=== PATIENT | female | born 1975 | race Caucasian/White ===

== ENCOUNTER → 2018-05-14 | Outpatient (CLI) | payer BC | END | disposition home or self-care (01) | LOC: LABWHC1 11:46 | PROVIDERS: ATTEND Otolaryngology | DX: J30.89 Other allergic rhinitis (principal) | CPT/HCPCS: 36415 ==

== ENCOUNTER → 2020-06-02 | Outpatient (CLI) | payer BC ==
--- NOTE | 2020-06-02 10:42 | XR ---
EXAMINATION TYPE: XR shoulder complete LT DATE OF EXAM: 06/02/2020 COMPARISON: NONE HISTORY: Pain TECHNIQUE: Three views are submitted. FINDINGS: The osseous structures are intact. There is no acute fracture or dislocation. The AC joint is maint ained. Artifact noted overlying the lung alex. IMPRESSION: 1. No acute process.
--- NOTE | 2020-06-02 11:10 | XR ---
EXAMINATION TYPE: XR cervical spine comp DATE OF EXAM: 06/02/2020 COMPARISON: NONE HISTORY: Pain TECHNIQUE: Four views are submitted. FINDINGS: The odontoid is intact. There are no compression deformities. The prevertebral soft tissue structur es are within normal limits. Severe degenerative disc disease with posterior spondylosis and anterio r spurring C5-C6. Foraminal encroachment C5-6 and C6-C7 bilaterally. Greater at C6-C7. IMPRESSION: 1. Severe degenerative disc disease C5-C6.
== END | disposition home or self-care (01) ==
LOC: RADXRYALE 10:13
PROVIDERS: ATTEND Internal Medicine
DX: M50.322 Other cervical disc degeneration at C5-C6 level (principal); M25.512 Pain in left shoulder
CPT/HCPCS: 72050

== ENCOUNTER → 2020-08-11 | Outpatient (CLI) | payer BC ==
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
== END | disposition home or self-care (01) ==
LOC: RADMRIMAIN 11:04
PROVIDERS: ATTEND Orthopaedic Surgery
DX: M48.02 Spinal stenosis, cervical region (principal); M50.30 Other cervical disc degeneration, unspecified cervical region
CPT/HCPCS: 72141

== ENCOUNTER → 2020-08-16 | Outpatient (CLI) | payer BC ==
--- NOTE | 2020-08-17 04:29 | MR ---
EXAMINATION TYPE: MR shoulder LT wo con DATE OF EXAM: 08/16/2020 COMPARISON: None HISTORY: LT shoulder pain Multiplanar multiecho imaging of the left shoulder was performed without contrast. The biceps tendon is intact. Subscapularis tendon is intact. Glenoid ashwin appear intact. There is sm all shoulder joint effusion. There is full-thickness defect in the supraspinatus tendon 1 cm from the attachment on the greater tu berosity of the humerus. There is some thickening and increased signal in the tendon. There is no ret raction. There is small amount of fluid in the subdeltoid bursa. The AC joint is intact without significant subacromial impingement. There is minor spur formation. Th ere is no evidence of a fracture. The humeral head is intact. IMPRESSION: Full-thickness tear of the supraspinatus tendon. No retraction. Mild shoulder joint effusion and subdeltoid effusion consistent with synovitis. No fracture.
== END | disposition home or self-care (01) ==
LOC: RADMRIMAIN 16:23
PROVIDERS: ATTEND Orthopaedic Surgery
DX: M75.112 Incomplete rotator cuff tear or rupture of left shoulder, not specified as traumatic (principal); M25.412 Effusion, left shoulder

== ENCOUNTER → 2020-11-08 | Outpatient (CLI) | payer BC ==
--- NOTE | 2020-11-09 09:11 | CT ---
EXAMINATION TYPE: CT cervical spine wo con DATE OF EXAM: 11/08/2020 COMPARISON: None HISTORY: Cervicalgia CT DLP: 347.20 mGycm CONTRAST: None CT of the cervical spine is performed in the axial plane at 2 mm thick sections. Reconstructed image s in the coronal, and sagittal plane are reviewed on the computer. No acute fractures are evident. There is slight kyphosis is present centered at C5. Degenerative disc changes noted C5-6. Mild disc bulging is mild anterior thecal sac compression. Some spinal canal narrowing may be present. Minimal anterior vertebral body spurring is present C5. Prevertebral space is normal. Posterior spinal lamel lar line is intact. Remaining disc heights are preserved. Vertebral body heights are preserved. No spinal canal stenosis is evident Uncovertebral joint hypertrophy is present C6-7 with mild bilateral foraminal narrowing IMPRESSIONS: 1. Mild degenerative disc change C5-6 with disc bulging contributing to spinal canal narrowing. 2. Mild foraminal narrowing C6-7 due to uncovertebral joint hypertrophy.
== END | disposition home or self-care (01) ==
LOC: RADCTMAIN 13:06
PROVIDERS: ATTEND Orthopaedic Surgery
DX: M48.02 Spinal stenosis, cervical region (principal); M50.322 Other cervical disc degeneration at C5-C6 level
CPT/HCPCS: 72125

== ENCOUNTER → 2020-11-08 | Outpatient (CLI) | payer BC | END | disposition home or self-care (01) | LOC: LABPAT 11:09 | PROVIDERS: ATTEND Orthopaedic Surgery | DX: Z01.812 Encounter for preprocedural laboratory examination (principal); M50.222 Other cervical disc displacement at C5-C6 level | CPT/HCPCS: 87070 ==

== ENCOUNTER 2020-11-16 11:29 | Day surgery (SDC) | payer BC ==
[2020-11-12 14:19] VITALS: BMI 24.4
--- NOTE | 2020-11-15 10:48 | P.HPOR ---
History of Present Illness H&P Date: 11/08/20 Chief Complaint: Arm pain, finger numbness, neck pain HPI: Ms Alec presents for follow up of her C spine with her to discuss surgery. We talked earlier about doing injections of her spine, however she states that her symptoms have become worse and she would like to pursue surgical options as she has tried OCT, RX medications, Home therapy, PT as well as cremes, CBD and multiple forms of conservative care for the past year with no improvement. She and her both think that surgery is the next best option for her at this time. HISTORY: This 45 year old female presents today for a follow up on her cervical pain and MRI results. She completed physical therapy on 08/31/2020 with some improvements. She notes pain in the center of her neck that radiates into the left shoulder and left upper extremity. Patient also notes left index finger numbness that increases with applying pressure. Patient has night time symptoms. Patient has burning sensation that increases with activity. She does not take pain medications. She uses CBD oil. Review of Systems 14 points review of systems completed and as stated in HPI, all other systems reviewed are negative. 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, herniated disk, degenerative disks-has some numbnes in fingers on left hand), benign cysts on thyroid, History of Any Multi-Drug Resistant Organisms: None Reported Past Surgical History: Appendectomy, Hysterectomy Additional Past Surgical History / Comment(s): D&C, EGD, thyroid fine needle aspiration Past Anesthesia/Blood Transfusion Reactions: No Reported Reaction Smoking Status: Never smoker - Past Family History Father Family Medical History: Cancer Additional Family Medical History / Comment(s): melanoma Medications and Allergies Home Medications Medication Instructions Recorded Confirmed Type Acetaminophen [Tylenol Extra 1,000 mg PO DIRECTED PRN 11/12/20 11/12/20 History Strength] Multivitamins, Thera [Multivitamin 1 tab PO DAILY 11/12/20 11/12/20 History (formulary)] Allergies Allergy/AdvReac Type Severity Reaction Status Date / Time amoxicillin Allergy Itching Verified 11/12/20 14:11 erythromycin base Allergy Itching Verified 11/12/20 14:11 minocycline [From Minocin] Allergy Itching Verified 11/12/20 14:11 morphine Allergy Rash/Hives Verified 11/12/20 14:11 Penicillins Allergy Itching Verified 11/12/20 14:11 Sulfa (Sulfonamide Allergy Itching Verified 11/12/20 14:11 Antibiotics) sulfamethoxazole Allergy Itching Verified 11/12/20 14:11 [From Bactrim] trimethoprim [From Bactrim] Allergy Itching Verified 11/12/20 14:11 Physical Examination Osteopathic Statement: *. No significant issues noted on an osteopathic structural exam other than those noted in the History and Physical/Consult. PHYSICAL EXAMINATION: Gen. patient alert and oriented 3 appears well-nourished well-hydrated is no acute distress. She does not appear septic. Heart is regular rate and rhythm no murmurs. Lungs are clear to auscultation bilaterally. Palpation: Please see Pain drawing on Intake sheet for further detail. Midline spinal tenderness: yes cervical E6 Paralumbar tenderness: No E6 Parathoracic tenderness: No E6 Buttocks tenderness: No E6 POSTURAL and MUSCULO-SKELETAL EVALUATION: Coronal Balance: Neutral Sagittal Balance: Neutral Shoulder Profile: [Level] Pelvic Girdle: [Level] Neck ROM: some restrictions Lumbar ROM: Unrestricted Shoulder ROM: Symmetric in abduction, ER/IR Hip ROM: Symmetric in abduction, adduction, ER/IR Knee ROM: Symmetric and intact in Flexion / extension VASCULAR STATUS : LEFT RIGHT Wrist Pulses intact intact Pedal Pulses (Dors. pedis & post.tibialis) intact intact Color normal normal Edema Absent Absent NEUROLOGIC EXAMINATION: Mental Status: Awake and alert, fully oriented, with normal attention, concentration and memory, and fluent, appropriate speech. Cranial Nerves: I: Olfactory not tested. II: Visual acuity normal, no visual field deficit noted with confrontation. III,IV: Normal pupillary reflexes & intact extraocular movements without nystagmus. V,: Intact symmetrical facial sensation. VII: Intact symmetrical facial motor movement VIII: Hearing intact. IX,X: Intact gag, swallow, & normal voice. XI: Sternocleidomastoid, trapezius function intact. XII: Tongue midline with normal movements. L'hermitte's Sign: Negative / absent Spurling'Sign: Absent bilaterally. Cubital percussion test: Absent bilaterally. Saqib-Tinel sign - Carpal region: Absent bilaterally. Straight Leg Raising: Absent bilaterally. Crossed straight leg raise: negative O8 MOTOR EXAM (0-5/5, N/T) STRENGTH RIGHT LEFT Shoulder Abd (not part of the YOLANAD score) 5 +4 Elbow Flexors 5 5 Elbow Extensor 5 +4 triceps 5 4+ Finger Abductor 5 5 Internet Sales Representative 5 4 Hip Flexor (Not part of YOLANDA Motor score) 5 5 Knee Flexor 5 5 Knee Extensor 5 5 Ankle dorsiflexor 5 5 Ankle plantarflexion 5 5 Extensor hallucis 5 5 REFLEXES(0-4/2, NT) RIGHT LEFT Upper Extremities +3 +3 Lower Extremities +3 +3 Pathological Reflexes RIGHT LEFT Jeffers's Absent Absent Clonus Absent Absent Sensory system (0-4, N/T) Test type RU GARRY RL LL Joint-Position 2 2 2 2 Vibration 2 2 2 2 Pain & LT sense 2 2 2 2 Dermatomal Deficit: none none none none Gait and Functional Evaluation Romberg's test: Intact bilaterally Toe heel walk / heel-toe walk intact while maintaining satisfactory balance? yes Squatting/straightening w/o assistance to a min of 60 degree knee flexion? yes Single leg stance: intact Trendelenburg sign negative bilaterally Hand and finger dexterity intact bilaterally? yes Disdiadochokinesis examination negative bilaterally? yes Results multiple views of the cervical spine obtained and reviewed this demonstrates a stable occipital cervical and C1 2 joints through flexion-extension. Subaxial cervical spine is stable through flexion-extension. There is spondylosis noted at C5-C6 compared to other levels. There is mild retrolisthesis at this level as well. It does remain stable through flexion-extension however. No fractures dislocations or other lesions are noted. Her facet joints appear without any arthritic changes. MRI of of the cervical spine from 08/11/2020 reveal: C5-6 and C6-7 stenosis with foraminal stenosis moderate in nature due to HNP. C5-6 appears more acute while C6-7 appears more chronic. She injured it back in December so this fits. She states continued radicular symptoms that correspond to these segments. No fracture or dislocation is noted. Assessment and Plan Assessment: IMPRESSION AND PLAN: It was my pleasure to have seen and examined Jessica Michael. I reviewed the patient's clinical syndrome, physical findings, and imaging studies during the appointment today. It is my impression that the patient has a diagnosis of . I outlined the natural course history without intervention and various interventional options. 1. C5-C6 herniated disc/stenosis 2. C6-C7 herniated disc/ stenosis 3. left upper extremity numbness ( left middle finger) 4. LUE weakness Plan: Based on my findings I suggest the following course of action: 1.Schedule for C5-C6 and C6-7 Total disc replacement 2. 1 week pre op appt 3. PCP for surgical clearance 4. Cont consevative measures as well as symptomatic treatment at home 5. Cont with supplementation Vit D, Ca and Vit C. In our visit today Ms. Michael and I have had a chance to go over my understanding of the patient's current condition, the natural course history wit hout intervention and various interventional options. Questions were invited and answered, and the patient wishes to proceed as outlined above. Surgical Procedure Risk Review Jessica Michael is a 45 year old female presenting for evaluation of onset of LUE weakness, pain LIF numbness, hand numbness, arm pain. It was my pleasure to have seen and examined Ms. Michael. In our visit today we have had a chance to go over subjective complaints, physical examination findings and treatments, including the natural course history without intervention and various interventional options. The imaging demonstrates C5-6 and C6-7 stenosis due to disc herniation and spondylosis anterior . On physical exam, Ms. Michael demonstrates Weakenss in her LUE in tricep extension as well as some bicep and wrist extension, numbness in C6 distribution . I explained to the patient that as her condition progresses it could cause Continued or worsening symptoms . At this time, based on the patients imaging and physical exam, I recommend surgery in the form or a: C5-6 and C6-7 Total disc replacement . I discussed the risk and benefits of this procedure at length with Ms. Michael. The patient and her spouse/partneragreed to consider pursuing the procedure mentioned above. Plan: 1. C5-6 and C6-7 total disc replacement 2. Follow up with PCP for surgical clearance 3. Review of surgical risks and benefits as well as an educational packet on the proposed surgical procedure. Risks: All surgical procedures come with inherent risks, including those related to positioning, anesthesia, intraoperative findings, and postoperative complications. It is important to understand that surgery does not come with any guarantee of a successful outcome as complications and adverse events are always possible. The patient was given a handout in office today discussing the surgical procedure and risks associated with the intervention, both of which were discussed with the patient. These risks include but are not limited to the following: ? Experiencing same, different or even worse symptoms in back, neck, arms, or legs compared to before surgery. ? Requiring further surgery or other forms of treatment presently or at some time in the future at same or other levels of the intended spine surgery. ? On an extreme but fortunately relatively rare basis severe complication such as blindness, stroke, heart attack, temporary and/or permanent nerve injury, paralysis, coma, or may occur, sometimes without known explanat ion. ? Surgical complications may include but are not limited to risk of infection, fluid accumulation in the surgical dissection site, including a seroma or hematoma, that requires additional surgery, wound drainage, bleeding, new numbness or weakness, vision changes/loss, spinal fluid leakage, non-healing and/or infected incision, headaches, difficulty or inability to swallow, hoarseness, hemopneumothorax, pneumothorax, impotence, retrograde ejaculation, vaginal dryness; injury to nerves, spinal cord, blood vessels, lymphatics or other vital organs (i.e., bowel injury, injury to the great vessels); heterotopic bone formation; complications related to the hardware such as screws, rods, cages including misplaced hardware, device failure, instrumentation at the wrong spine level, hardware fracture/breakage, or hardware loosening; vertebral failure of the spinal column above or below the newly placed hardware; retained surgical instrumentations or devices and the need for further surgery. ? Medical risks of the planned spine surgery include but are not limited to generalized Infections to the whole body or local areas outside of the surgical site (sepsis), heart attack, bleeding, anaphylaxis, meningitis, seizure, epilepsy, hearing loss, burn gill, laceration of the head or other areas of the body, bruising, hypersensitivity of the skin, bladder over distension; allergic reaction; shoulder injury related to positioning; fat, blood and air clots to other areas of the body like heart, lungs, brain; failure of internal organs such as lungs, kidneys, liver and excessive bleeding. If blood transfusions are necessary, note that transfusions may cause intolerance reactions such as anaphylaxis or other complex reactions. Despite best efforts, the results of spine surgery might not heal in terms of bone, soft tissues such as skin, fascia, ligaments, and joints. Additionally, in order to achieve best possible results, spine surgery may be carried out beyond the initially planned levels and involve decompression, fusion including insertion of hardware at levels other than the original intended area of surgical interest change some portions of the procedure in order to ensure the best possible outcomes. With spine surgery and spinal fusion, there are different off label uses of instrumentation (devices, implants and hardware) as well as biological substances (bone morphogenic proteins, demineralized bone matrix) as well as using extra bone from allograft sources (i.e. cadaver bone) or autograft (iliac crest bone, ribs, or the spine itself). The patient has been given information about these practices and their inherent risks and benefits. [facility] [facility] Physician Assistants are medically trained surgical providers who function in the outpatient, inpatient, and operating room setting under the direct supervision of the attending surgeon.They assist in the operating room with direct supervision of the attending surgeons. The patient has had a chance to review all the listed information, has been given print outs detailing this information, and has had all his/her questions answered to their satisfaction. It was my pleasure to have seen and examined Ms. Michael. In our visit today we have had a chance to go over my understanding of our patient's current condition, the natural course history without intervention and various interventional options. Questions were invited and answered, and the patient wishes to proceed as outlined above. I have seen and examined the patient for 25 minutes and we have spent more than 50% of the time in repeat and detailed counseling about the patient's condition, its natural course history with out and as much as can be predicted with surgery and re-review of various surgical treatment options. In conclusion,Ms. Michael and her spouse/partner requested we proceed with the above suggested surgery and are willing to accept risks and limitations of the suggested surgery as nature of the disease process and our best attempts at treatment for the condition. Thank you again for allowing us to be part of your patient's care. Please don't hesitate to contact me if you have any further questions. Signed and authenticated by: Abiel Brown [facility] [address] [address]
[~2020-11-16 11:29] MED LIST: DEXAMETHASONE SOD PHOSPHATE 4 MG/ML 1 ML VIAL IV ONE; HYDROmorphone 0.5 MG/0.5 ML SYRINGE IVP PRN; ONDANSETRON 4 MG/2 ML VIAL IVP ONE
[2020-11-16] MEDS ORDERED: ONDANSETRON 4 MG/2 ML VIAL ONE ×2 (12:20→13:57)
[2020-11-16] MEDS: LACTATED RINGERS 1,000 ML IV SCH ×2 (12:26→19:45)
[2020-11-16] MEDS ORDERED: SCOPOLAMINE 1.5MG/72HR PATCH TRANSDERM ONE (12:27)
[2020-11-16] MEDS ORDERED: TRANEXAMIC ACID 2,000 MG in SODIUM CHLORIDE 0.9% 100 ML IVPB ONE (13:18)
[2020-11-16] MEDS ORDERED: TRANEXAMIC ACID 1,000 MG in SODIUM CHLORIDE 0.9% 100 ML IVPB PRN ×2 (13:22→13:23)
[2020-11-16] MEDS ORDERED: LIDOCAINE 1% INJ 10MG/ML (20 ML MDV) ONE (13:57)
[2020-11-16] MEDS ORDERED: TRANEXAMIC ACID 1,000 MG/10 ML VIAL ONE (13:57)
[2020-11-16] MEDS ORDERED: MIDAZOLAM 2 MG/2 ML VIAL ONE (13:57)
[2020-11-16] MEDS ORDERED: diphenhydrAMINE 50 MG/ML 1 ML VIAL ONE (13:57)
[2020-11-16] MEDS ORDERED: DEXAMETHASONE SOD PHOSPHATE 10 MG/ML 1 ML VIAL ONE (13:57)
[2020-11-16] MEDS ORDERED: ePHEDrine SULFATE/0.9% NACL/PF 50 MG/5 ML SYRINGE IV ONE (13:57)
[2020-11-16] MEDS ORDERED: GLYCOPYRROLATE 0.2 MG/ML 2 ML VIAL ONE (13:57)
[2020-11-16] MEDS ORDERED: SUCCINYLCHOLINE CHLORIDE 100 MG/5 ML SYR IV ONE (13:57)
[2020-11-16] MEDS ORDERED: HYDROmorphone (PF) 1 MG/ML ONE (13:57)
[2020-11-16] MEDS ORDERED: SODIUM CHLORIDE 0.9% 100 ML BAG ONE (13:57)
[2020-11-16] MEDS ORDERED: PROPOFOL 10 MG/ML 20 ML VIAL IV ONE (13:57)
[2020-11-16] MEDS ORDERED: fentaNYL (PF) 50 MCG/ML 2 ML AMP ONE (13:57)
[2020-11-16] MEDS ORDERED: KETAMINE 10 MG/ML 20 ML VIAL ONE (13:57)
[2020-11-16] MEDS ORDERED: LIDOCAINE 2%-EPI 1:100,000 20 ML VIAL SQ ONE (14:00)
[2020-11-16] MEDS ORDERED: BUPIVACAINE (PF) 0.5% 30 ML VIAL SQ ONE (14:00)
[2020-11-16] MEDS ORDERED: ceFAZolin 1,000 MG in SODIUM CHLORIDE 0.9% 1,000 ML IRRIGATION ONE (14:29)
[2020-11-16] MEDS ORDERED: LACTATED RINGERS 1,000 ML IV ONE (16:30)
[2020-11-16] MEDS ORDERED: GELATIN SPONGE,ABSORB (LARGE) 1 EACH SPONGE TOPICAL ONE (16:54)
[2020-11-16] MEDS ORDERED: THROMBIN (BOVINE) 5,000 UNIT VIAL TOPICAL ONE (16:54)
[2020-11-16] MEDS ORDERED: VANCOMYCIN 1,000 MG VIAL MISCELLANE ONE (16:54)
[2020-11-16] MEDS ORDERED: ONDANSETRON 4 MG/2 ML VIAL IVP PRN (17:24)
[2020-11-16] MEDS ORDERED: HYDROmorphone 1 MG/ML 1 ML SYRINGE IVP PRN (17:24)
[2020-11-16] MEDS ORDERED: SENNOSIDES-DOCUSATE SODIUM 1 EACH TAB PO PRN (17:24)
--- NOTE | 2020-11-16 17:37 | P.PN ---
Progress Note - Text Progress Note Date: 11/16/20 Postop: . Patient seen and examined they are doing well. Their pain is under control at this time. They are moving all 4 extremities without any issues. Vital signs are stable.. They are currently recovering and will be transferred to the floor once deemed stable by the PACU team and anesthesiologist. No Other issues at this time they deny fever chills shortness of breath or chest pain. C collar in place, well fitting Medical management pending Continue with intravenous fluids, pain medication, muscle relaxers, home medication Liquid diet to start to advance as tolerated We will evaluate the patient in the morning when she will likely be discharged.
--- NOTE | 2020-11-16 18:38 | XR ---
Fluoroscopy INDICATION: Pain FINDINGS: Fluoroscopy time: Not recorded . Images obtained: 8. IMPRESSIONS: 1. Documentation of fluoroscopy.
[2020-11-16] MEDS: GABAPENTIN 300 MG CAP PO SCH ×2 (20:15→22:59)
[2020-11-16] MEDS ORDERED: CYCLOBENZAPRINE 10 MG TAB PO SCH (21:00)
[2020-11-16] MEDS: INDOMETHACIN 25 MG CAP PO SCH (21:40)
--- NOTE | 2020-11-17 08:17 | P.OP ---
Date of Procedure: 11/16/20 Preoperative Diagnosis: 1. C5-6 stenosis 2. C6-7 stenosis 3. C5-6 spondylosis 4. C6-7 spondylosis 5. LUE weakness 6. LUE radiculopathy Postoperative Diagnosis: 1. C5-6 stenosis 2. C6-7 stenosis 3. C5-6 spondylosis 4. C6-7 spondylosis 5. LUE weakness 6. LUE radiculopathy Procedure(s) Performed: 1. Anterior approach to the cervical spine, Right sided rothman jimenez 2. C5-6 total disc replacement 3. C6-7 total disc replacement 4. Use of intraoperative microscope 5. Use of intraoperative neuromonitoring Implants: Prodisc C cervical disc replacement C5-6: 5 mm Large deep C6-7: 5 mm XL deep Anesthesia: GETA Surgeon: Abiel Avila Internal Control Consultant #1: Berlin Noel (Was present for the entire case and necessary due to the complexity of the case) Estimated Blood Loss (ml): 50 IV fluids (ml): 1,200 Urine output (ml): 250 Pathology: none sent Condition: stable Disposition: PACU Indications for Procedure: This is a pleasant 45-year-old female for the past year has been having increasing symptoms in her upper extremities with pain and weakness as well as radiculopathy. The patient originally had an injury to her neck for which she was treated conservatively but now her symptoms have increased in return she went through another course of conservative treatment which has failed to alleviate her symptoms and she has elected for surgical fixation. On MRI she wa s found to have 2 levels of stenosis with spondylosis anteriorly at C5 6 C6 7 she is elected for total disc replacement at this time recent benefits of the procedure were discussed and are outlined in the risk review. Operative Findings: Severe anterior spondylosis C5 6 C6 7 severe stenosis C5 6 Description of Procedure: The patient was seen and examined in the preoperative area. All preoperative protocols were followed. Informed consent was obtained risks and benefits of the procedure were discussed at length. Risks including bleeding infection damage to the surrounding tissue and risk of reoperation were discussed with the patient. Risk of anesthesia up to and including was a discussed with the patient. These are outlined in the risk review. They were willing to accept these risks and all of the risks of surgery. The patient was given a weight- based dose of antibiotics in the form of Ancef 2 g. The patient was seen and evaluated by the anesthesia team who deemed them fit for surgery. The site was marked, the patient was willing to proceed with the procedure. The patient was transferred to the operative suite by the Department of anesthesia. They were then drifted off to sleep by the department anesthesia GETA. The patient tolerated this well. [Ghosh catheter was placed by nursing staff, atraumatically]. Once confirmation of lines and ventilation the patient was transferred to a supine flattop Garrett table. All bony prominences including wrists, elbows, axilla, chest, hips, and thighs, and feet were padded very well. Special attention was paid to the genitalia and these were padded accordingly. SCDs were placed on bilateral lower extremities and were connected. Arms were well padded and placed at her side well padded. The shoulders were taped down to allow for visualization and a bump was placed underneath her shoulders to allow for slight extension of the neck.. Once in position, again we confirmed good ventilation capabilities and that lines were running appropriately. The patient's anterior cervical spine was then exposed. 1010s were placed outlining the incision site. Standard alcohol was used to clean the incision site and allowed to dry. C-arm was used to biomark the patient and confirm level for incision which was marked with a skin marker. Operative briefing was performed with all teams and everyone in agreement to proceed. The patient was then prepped and draped in a normal sterile fashion. Timeout was then performed and all parties were in agreement with the procedure to be performed. The previously by marked area was then infiltrated with half percent Marcaine without epinephrine. Skin incision was made transverse in line with a skin fold. Dissection was bluntly taken down to platysma which was then split longitudinally. We then entered the interval between sternocleidomastoid and the strap muscles as well as the omohyoid which was identified and carefully moved out of the way. Blunt dissection was taken down to the deep cervical fascia was then incised revealing the anterior longitudinal ligament this was then cleaned using a Kitner and blunt dissection. We then placed the retracting devices to allow for visualization and AP and lateral fluoroscopy were taken to confirm levels with a blunt probe. Once we confirmed levels C5 6 C6 7 we pro ceeded with the distal level first of C6-C7. Microscope was brought in at this point for visualization. Anterior discectomy was performed along with foraminotomies. We remove the PLL entirely to allow for decompression as well as mobilization. This was done under distraction with [place] plate pins which were placed under lateral fluoroscopy. Once the discectomy had been complete and we confirmed that the endplates were free of cartilage and that the foramen were free meticulous hemostasis was performed. Then irrigated the disc space out. We then placed a trial for the Prodisc C. We settled on an extra large deep trial which matched the footprint of the patient's vertebral bodies excellently. We placed this under AP and lateral fluoroscopy. We then placed the milling jig over this taking care to protect the soft tissue around it we then under pulsed lateral fluoroscopy performed to the keel cuts superiorly and then inferiorly with the jig. This jig was then removed and the chisel was passed for extra measure and to complete the cuts. This was also done under lateral fluoroscopy. We then removed the chisel checked our cuts and they were in good position so the trial was removed. We then copiously irrigated the disc space as well as inspected the foramen and the dura which was intact. We cleaned the allen. We then selected the final implant and impacted into place under lateral fluoroscopy it was impacted into good position and was stable. We can perform meticulous hemostasis and irrigated the area bone wax was placed over any open bone ends. The [place] pin and C7 was removed and bone wax placed into the void. We then turned our attention to the C5 6 level. Under lateral fluoroscopy placed a [place] pin into the C5 vertebral body parallel to the endplates to match the C6 pin. We then placed the distractor and perform distraction carefully. We then released the disc and removed the disc of C5-C6 taking care to remove all the way out to the uncovertebral joints bilaterally as well as posteriorly. It traveled down to the posterior longitudinal ligament. There is a large osteophyte anterior and posterior and C5 and so high-speed bur was used to remove this. We then remove the PLL entirely to allow for mobilization as well as decompression of the foramen. We performed foraminotomies bilaterally using Kerrison rongeur. We then copiously irrigated out the disc space. We then turned to the trials and under AP and lateral fluoroscopy placed a trial for the Prodisc C. We settled on a large deep trial as this fit the patient's footprint well. Once trials in place the cutting jig was placed and soft tissue was taking care to protect we then under lateral fluoroscopy made our keel cuts with the high-speed bur. Cutting jig was then removed and under lateral fluoroscopy placed the chisel. We then remove the chisel checked our cuts and they are in good position. We removed the trial and we cleaned the allen. We then copiously irrigated the disc space and inspected the dura was intact. We performed meticulous hemostasis. We then selected and placed the final component into C5 [address] under lateral fluoroscopy. We then copiously irrigated the wound we placed bone wax over any open bone edges [place] pins removed and bone wax placed in the void. We then removed all retractors and took final images in AP and lateral which confirmed good placement of the implants. We then again copiously irrigated the wound. Surgicel was placed deep to over the implants. Bone wax is in place on any open bone areas. We then proceeded with closure of the wound with 3-0 Vicryl in the platysma layer followed by 3-0 Vicryl in the subcu every layer followed by 4-0 Monocryl in the subcuticular layer. We then cleaned the wound and sterilely dressed it with exception glue followed by an operative foam dressing. Intraoperative neuro monitoring showed no changes from baseline throughout the entire case and final motors were stable. The patient was transferred back to her hospital bed atraumatically. Patient was then awakened and extubated by the department of anesthesia having tolerated the procedure very well with no complications. She was transferred to the postoperative care unit in stable condition.
[2020-11-17 08:24] VITALS: TEMP 98.6
--- NOTE | 2020-11-17 08:45 | XR ---
EXAMINATION TYPE: XR cervical spine limited DATE OF EXAM: 11/17/2020 COMPARISON: 11/16/2020 HISTORY: Postop TECHNIQUE: 4 views submitted FINDINGS: Soft tissue emphysema in the prevertebral space. Postsurgical change C5-6 and C6-C7. [employer] ior spondylosis at both levels. Odontoid intact. Remaining disc spaces preserved. IMPRESSION: 1. Postsurgical change with soft tissue emphysema in the prevertebral space likely postsurgical corre late clinically.
--- NOTE | 2020-11-17 08:47 | FL ---
EXAMINATION TYPE: FL guidance operating room DATE OF EXAM: 11/16/2020 HISTORY: Fluoroscopy time 2 minutes and 23 seconds of fluoroscopy provided. IMPRESSION: 1. Fluoroscopy time.
--- NOTE | 2020-11-17 09:20 | P.PN ---
Subjective Progress Note Date: 11/17/20 Principal diagnosis: C5-C6 herniated disc/stenosis; C6-C7 herniated disc/ stenosis Patient seen at bedside this morning in wheelchair wearing soft c-collar about to go to [facility]. Patient says she is doing well and is ready to go home today. She says she is in minimal pain. Patient says she is getting some feeling and decreased numbness/tingling in her fingers of both hands. Patient denies chest pain, fever, shortness breath, nausea, vomiting, change in vision, loss of satya l/bladder control, saddle anesthesia. Objective - Vital Signs Vital signs: Vital Signs Temp 97.5 F L 11/17/20 02:20 Pulse 62 11/17/20 02:20 Resp 15 11/17/20 02:20 BP 112/66 11/17/20 02:20 Pulse Ox 100 11/17/20 02:20 Intake & Output 11/16/20 11/17/20 11/17/20 18:59 06:59 18:59 Intake Total 2351 Output Total 235 1 Balance 2115 Weight 63 kg Intake: IV 2351 Output: Urine 185 1 Estimated Blood Loss 50 Other: Voiding Method Toilet # Voids 1 - Exam Incision is clean, dry, intact. silver foam dressing in place over right side anterior cervical spine. Negative for any purulence/fluctuance. Patient able to wiggle fingers and has increasing supervisor malted milk strength in both hands. Patient can raise arms on own. Patient able to wiggle toes and elevate legs. Negative Homans bilaterally. DP pulses 2+, intact bilaterally. Cap refill under 3 seconds. Assessment and Plan Assessment: POD #1 s/p C5 to C6 and C6 to C7 total disc replacement with nerve integrity monitoring Plan: 1. C5-C6 herniated disc/stenosis; C6-C7 herniated disc/ stenosis - surgery performed yesterday, 11/16/2020 - C5 to C6 and C6 to C7 total disc replacement with nerve integrity monitoring. Patient stable this morning; plan for discharge home today 2. Appreciate medical management 3. Pain management - stable at this time; patient going home with tramadol and gabapentin 4. GI ppx- Senna 5. PT/OT - weightbearing as tolerated 6. Discharge planning - plan for discharge today to home, 11/17/2020 Time with Patient: Less than 30
--- NOTE | 2020-11-17 09:20 | P.DS ---
Providers Date of admission: 11/16/2020 Expected date of discharge: 11/17/20 Attending physician: Abiel Avila DO Consults: 11/16/20 17:24 Consult Physician Routine Consulting Provider: Leon Rogers Consult Reason/Comments: s/p C5-C6, C6-C7 intervertebral disc replacement Do you want consulting provider notified?: Yes Primary care physician: Akila Phelps Hospital Course: Date of admission: 11/16/2020 Date of discharge: 11/17/2020 Admission diagnosis: C5-C6 herniated disc/stenosis; C6-C7 herniated disc/ stenosis Discharge diagnosis: Same Attending physician: Dr. Avila Surgical procedures: C5 to C6 and C6 to C7 total disc replacement with nerve integrity monitoring Brief history: Patient is a 45-year-old female with a history of C5 to C6 herniated disc/stenosis and C6 to C7 herniated disc/stenosis. At this point patient has failed conservative treatment measures and has opted to proceed with a elective C5 to C6 and C6 to C7 total disc replacement with nerve integrity monitoring. Hospital course: Details of patient's surgery can be found in operative report. Patient tolerated the procedure well and was subsequently transported to orthopedic floor. Patient's orthopeidc and medical care was provided daily. Patient had daily laboratory tests performed for evaluation of overall blood counts. Patient had daily physical therapy to include strengthening range of motion as well as education with walker ambulation. Patient was treated with Xarelto for their postoperative DVT prophylaxis during their inpatient stay. Patient was noted to have a relatively uneventful postoperative course. Patient reported satisfactory pain control with oral pain medications by postoperative day 1. Patient showed satisfactory progress with physical therapy. Patient moved steadily through the program and had no difficulty meeting the goals by postoperative day 1. Given patient's otherwise satisfactory course and having met physical therapy goals, plan is to discharge patient home on postoperative day 1. Discharge condition/disposition: Patient will be discharged home in stable condition. Discharge medications: Instructions are given on resumption of patient's normal daily medications per primary care recommendation, in addition patient will be prescribed indomethacin 50 mg twice a day; tramadol 50 mg; gabapentin 300 mg; Flexeril; Colace; Duricef. Spine Discharge and Recovery Instructions Medications: See medication list All medication refills should be obtained through your primary care doctor or your clinic spine surgeon. Please discuss prescription refills at your follow up appointment. Do not call the hospital for medication refills. Dressing: Leave your dressing in place for a total of 5 days post operatively. Then you may remove your dressing and leave open to air. Keep the area clean and if not able to keep area clean, then cover with sterile gauze and tape. Showering: You may shower 3 days after your procedure allowing soap and water to run over incision. Do not scrub. Do not soak. Blot dry. Follow up: Please confirm a follow up appointment with your surgeon 3 weeks post operatively. Please make an appointment to follow up with your PCP in 1-2 weeks after surgery for evaluation 3 phase, 3-week plan POST OP WEEKS 1-3 1. Lifting/carrying/pushing/pulling limited to less than 5 pounds. 2. Do not sit for longer than 15 minutes at one time. Get up and walk around. Prolonged sitting is NOT advised. If you lay down, see if you can tolerate laying down on you front (belly side) 3. Walk for periods of 15 minutes = 1 mile but no longer; do it multiple times times each day. 4. Ice your low back after activity. POST OP WEEKS 3-6 1. Lifting limited to less than 20 pounds. 2. Do not sit for longer than 30 minutes at a time. Frequently change positions. Use a sit-to stand workstation or take frequent breaks from sitting if you have returned to work. 3. Walk for 30 minutes each day. If possible, do these three or more times a day POST OP WEEKS 6+ At your 6-week appointment we will give you a physical therapy referral to focus on a core stabilization and strengthening program. You should also work on leg & buttock strengthening, hamstring & quadriceps stretching, and continue a low impact aerobic activity program such as swimming, walking, or riding a stationary bicycle. During the initial 6 weeks after your surgery, you are at the highest risk of re-injuring your spine. You should generally avoid BLTs (bending, lifting and twisting combination motions) and follow the above guidelines to reduce the chance of reinjury. You can anticipate post op appointments in our office at approximately 3 weeks and 6 weeks after your surgery. INCISION CARE: If your incision is not draining you do NOT need to cover it with a dressing. Keep your incision clean, dry and intact. In most cases, we apply skin glue, zaki or sutures to the incision at the time of surgery. This will be like a crust or have the appearance of a scab and will fall off in time on its own. The stitches or zaki need to be removed at 3 weeks post op appointment. You may begin to shower 3 days after surgery (this allows the glue to koch well). However, please avoid scrubbing the incision site or peeling off any of the skin glue. This will ensure optimal healing of your incision. Also, during this time avoid soaking the incision area in water - this includes swimming pools, hot tubs or baths. No ointments, lotions or oils on the incision until your surgeon allows. Leave zaki, sutures or glue in place. Neurological dysfunction that comes on suddenly can also be a sign of a stroke. Below some common symptoms of a stroke are listed: B - balance difficulty such as sudden onset walking or leaning to one side - NEW E - eye problem such as sudden double vision or trouble seeing on one side - NEW F - Facial weakness or numbness on one side - NEW A - Arm or leg weakness or numbness on one side - NEW S - Slurred speech or difficulty with word finding - NEW T - Time is BRAIN! Call 911 as soon as you recognize these symptoms Diet: Consume a regular diet rich in vegetables and lean protein such as chicken or fish. You should consume in a ratio of approximately 20% fats|40% carbohydrates|40%protein. Vegetables, sweet potatoes, brown rice or quinoa are examples of good carbohydrates. Chips, white bread, cookies and sweets/sugar are examples of bad carbohydrates. Limit your bad carbs, go wild with good carbs. "Life's Simple 7" Guidelines as per [place] [employer] These will help you reclaim your life after surgery and flake miller helper in your recovery, keeping in mind your restrictions. (1) Get Active. Physical activity can help people lose weight, control high blood pressure and cholesterol, feel emotionally better, and sleep better. (2) Control Cholesterol. Avoid a diet high in saturated fat, trans fat, & cholesterol. Limit whole milk & cream, ice cream, butter, egg yolks, processed meats (like sausage and hot dogs), and fatty meats. Choose healthy foods that are low in saturated fat, trans fat and cholesterol which include: Fruits and vegetables, fiber rich grain products (like whole grain pasta and brown rice), lean meat such as chicken, fish, nuts, seeds, and legumes. (3) Eat Better. Eat small portions. Shop at the grocery with a list and do not stray from it. Tips for a healthy diet include: Limit sodium intake to less than 1500mg daily, avoid prepackaged, processed, and fast foods, choose a diet rich in fruits, vegetables, and whole grain, high fiber foods, and limit saturated & cholesterol in your diet. (4) Manage Blood Pressure. If you have high blood pressure, you should have a cuff at home so that you can check your blood pressure regularly. Be sure you have a good cuff. An arm one is generally better than a wrist one. Bring the cuff to a doctor's appointment to validate that the measurements that your cuff are taking are accurate. Take your blood pressure twice daily when you are sitting down and relaxing. Record the numbers in a log and bring this log with you to your doctors' appointments. (5) Lose Weight if your BMI is above 25. A healthy BMI is between 19-25. To calculate Your BMI, you may use a Standard BMI Calculator on the NIH BMI website: <www.nhlbi.nih.gov/guidelines/obesity/BMI/bmicalc.htm>. Weigh oneself daily. If you are overweight, set a goal to lose weight. A pound a week loss if needed is a good target. (6) Reduce Blood Sugar. Limit foods and liquids with "added sugars." (Added sugars include sucrose, fructose, glucose, maltose, dextrose, high fructose corn syrup, corn syrup, concentrated fruit juice and honey). (7) Stop Smoking. If you smoke, quitting smoking is one of the best things that you can do for your health. Smoking increases your risk of heart attack, stroke, and peripheral vascular disease, which is a build-up of plaque in your arteries. Please discard all the cigarettes and lighters in your house. Have a plan for what you will do when you have the urge to smoke. Direct and second- hand smoke shortens your life as well as the lives of your family, friends and others around you. For your health and the health of those around you, please consider quitting! Proper Bending Body Mechanics: Maintain a wide stance with one foot slightly in front of the other. Keep your back straight. Bend utilizing the strength in your hips and knees. Do not bend at the waist. Maintain the lifted object at your waist-level close to your body. Avoid lifting weight that causes immediately pain or pain anywhere in the body afterwards. Smoking/Nicotine If there was ever one thing that you could do to increase your overall health, decrease your risk of cardiovascular problems by about 39% the second you make the choice, it is to STOP SMOKING. Your body's most instant gratification is the second you stop smoking. We have all heard the studies, read the articles but it is true, smoking is extremely bad for your overall health, and moreover it is detrimental to your bone health. Nicotine, IN ANY FORM, kills bone cells, prevents your body from healing fractures, and significantly prolongs healing after surgery. In spine surgery specifically, it increases your risk of not healing your bones to create a fusion and increases your risk of having a revision surgery due to this up to 60%. I know it is hard. I know it feels impossible. But there are ways. Take control of your life. We are here to help you through it. And when you are ready, ask us and we can direct you to help if you desire. Use the START Plan to Quit Smoking (please visit the Helpguide.org website listed below for more information): S = Set a quit date. Choose a date within the next 2 weeks, so you have enough time to prepare without losing your motivation to quit. If you mainly smoke at work, quit on the weekend, so you have a few days to adjust to the change. T = Tell family, friends, and co-workers that you plan to quit. Let your friends and family in on your plan to quit smoking and tell them you need their support and encouragement to stop. Look for a quit min who wants to stop smoking as well. You can help each other get through the rough times. A = Anticipate and plan for the challenges you'll face while quitting. Most people who begin smoking again do so within the first 3 months. You can help yourself make it through by preparing ahead for common challenges, such as nicotine withdrawal and cigarette cravings. R = Remove cigarettes and other tobacco products from your home, car, and work. Throw away all your cigarettes (no emergency pack!), lighters, ashtrays, and matches. Wash your clothes and freshen up anything that smells like smoke. Shampoo your car, clean your drapes and carpet, and steam your furniture. T = Talk to your doctor about getting help to quit. Your doctor can prescribe medication to help with withdrawal and suggest other alternatives. If you can't see a doctor, you can get many products over the counter at your local pharmacy or grocery store, including the nicotine patch, nicotine lozenges, and nicotine gum. Resources for Quitting Smoking: <https://www.[place].gov/documents/[facility]/Quit_Tobacco_Resources_for_patients_313 480_7.pdf> Supplementation: Take recommended dosages of Vitamin D and Calcium to help fortify your bones and help them to heal. See your health maintenance packet for dosages and recommended levels. DVT/VTE prophylaxis: You will be given compression stockings from the hospital. Wear these daily for the first two weeks after surgery. You may take them off at night. You may be prescribed a medication to help thin your blood. Take this as directed. If you are not prescribed this medication, early and frequent ambulation has been shown to be the best prophylaxis to deep vein thrombosis and sequelae related to this event. Assessment: C5-C6 herniated disc/stenosis; C6-C7 herniated disc/ stenosis Procedures: C5 to C6 and C6 to C7 total disc replacement with Nerve Integrity Monitoring Patient Condition at Discharge: Good Plan - Discharge Summary Discharge Rx Participant: Yes New Discharge Prescriptions: New cefaDROXiL [Duricef] 1 gm PO DAILY #5 tablet Cyclobenzaprine [Flexeril] 10 mg PO HS #20 tab Sennosides/Docusate Sodium [Senna Plus 8.6-50 mg Softgel] 1 each PO DAILY #20 capsule traMADol HCl [Ultram] 50 mg PO Q6H PRN #30 tab PRN Reason: Pain Indomethacin [Indocin] 50 mg PO BID #30 capsule Gabapentin [Neurontin] 300 mg PO BID #60 cap No Action Multivitamins, Thera [Multivitamin (formulary)] 1 tab PO DAILY Acetaminophen [Tylenol Extra Strength] 1,000 mg PO DIRECTED PRN PRN Reason: Pain Discharge Medication List Acetaminophen [Tylenol Extra Strength] 1,000 mg PO DIRECTED PRN 11/12/20 [History] Multivitamins, Thera [Multivitamin (formulary)] 1 tab PO DAILY 11/12/20 [History] Cyclobenzaprine [Flexeril] 10 mg PO HS #20 tab 11/17/20 [Rx] Gabapentin [Neurontin] 300 mg PO BID #60 cap 11/17/20 [Rx] Indomethacin [Indocin] 50 mg PO BID #30 capsule 11/17/20 [Rx] Sennosides/Docusate Sodium [Senna Plus 8.6-50 mg Softgel] 1 each PO DAILY #20 capsule 11/17/20 [Rx] cefaDROXiL [Duricef] 1 gm PO DAILY #5 tablet 11/17/20 [Rx] traMADol HCl [Ultram] 50 mg PO Q6H PRN #30 tab 11/17/20 [Rx] Follow up Appointment(s)/Referral(s): Abiel Avila DO [Doctor of Osteopathic Medicine] - 2 Weeks Akila Phelps MD [Primary Care Provider] - 1 Week Activity/Diet/Wound Care/Special Instructions: Spine Discharge and Recovery Instructions Date of Surgery: 11/16/2020 Diagnosis: C5-C6 herniated disc/stenosis; C6-C7 herniated disc/ stenosis Procedures: C5 to C6 and C6 to C7 total disc replacement with nerve integrity monitoring Medications: See medication list All medication refills should be obtained through your primary care doctor or your clinic spine surgeon. Please discuss prescription refills at your follow up appointment. Do not call the hospital for medication refills. Dressing: Leave your dressing in place for a total of 5 days post operatively. Then you may remove your dressing and leave open to air. Keep the area clean and if not able to keep area clean, then cover with sterile gauze and tape. Showering: You may shower 3 days after your procedure allowing soap and water to run over incision. Do not scrub. Do not soak. Blot dry. Follow up: Please confirm a follow up appointment with your surgeon 3 weeks post operatively. Please make an appointment to follow up with your PCP in 1-2 weeks after surgery for evaluation 3 phase, 3-week plan POST OP WEEKS 1-3 1. Lifting/carrying/pushing/pulling limited to less than 5 pounds. 2. Do not sit for longer than 15 minutes at one time. Get up and walk around. Prolonged sitting is NOT advised. If you lay down, see if you can tolerate laying down on you front (belly side) 3. Walk for periods of 15 minutes = 1 mile but no longer; do it multiple times times each day. 4. Ice your low back after activity. POST OP WEEKS 3-6 1. Lifting limited to less than 20 pounds. 2. Do not sit for longer than 30 minutes at a time. Frequently change positions. Use a sit-to stand workstation or take frequent breaks from sitting if you have returned to work. 3. Walk for 30 minutes each day. If possible, do these three or more times a day POST OP WEEKS 6+ At your 6-week appointment we will give you a physical therapy referral to focus on a core stabilization and strengthening program. You should also work on leg & buttock strengthening, hamstring & quadriceps stretching, and continue a low impact aerobic activity program such as swimming, walking, or riding a stationary bicycle. During the initial 6 weeks after your surgery, you are at the highest risk of re-injuring your spine. You should generally avoid BLTs (bending, lifting and twisting combination motions) and follow the above guidelines to reduce the chance of reinjury. You can anticipate post op appointments in our office at approximately 3 weeks and 6 weeks after your surgery. INCISION CARE: If your incision is not draining you do NOT need to cover it with a dressing. Keep your incision clean, dry and intact. In most cases, we apply skin glue, zaki or sutures to the incision at the time of surgery. This will be like a crust or have the appearance of a scab and will fall off in time on its own. The stitches or zaki need to be removed at 3 weeks post op appointment. You may begin to shower 3 days after surgery (this allows the glue to koch well). However, please avoid scrubbing the incision site or peeling off any of the skin glue. This will ensure optimal healing of your incision. Also, during this time avoid soaking the incision area in water - this includes swimming pools, hot tubs or baths. No ointments, lotions or oils on the incision until your surgeon allows. Leave zaki, sutures or glue in place. Neurological dysfunction that comes on suddenly can also be a sign of a stroke. Below some common symptoms of a stroke are listed: B - balance difficulty such as sudden onset walking or leaning to one side - NEW E - eye problem such as sudden double vision or trouble seeing on one side - NEW F - Facial weakness or numbness on one side - NEW A - Arm or leg weakness or numbness on one side - NEW S - Slurred speech or difficulty with word finding - NEW T - Time is BRAIN! Call 911 as soon as you recognize these symptoms Diet: Consume a regular diet rich in vegetables and lean protein such as chicken or fish. You should consume in a ratio of approximately 20% fats|40% carbohydrates|40%protein. Vegetables, sweet potatoes, brown rice or quinoa are examples of good carbohydrates. Chips, white bread, cookies and sweets/sugar are examples of bad carbohydrates. Limit your bad carbs, go wild with good carbs. "Life's Simple 7" Guidelines as per [place] [employer] These will help you reclaim your life after surgery and flake miller helper in your recovery, keeping in mind your restrictions. (1) Get Active. Physical activity can help people lose weight, control high blood pressure and cholesterol, feel emotionally better, and sleep better. (2) Control Cholesterol. Avoid a diet high in saturated fat, trans fat, & cholesterol. Limit whole milk & cream, ice cream, butter, egg yolks, processed meats (like sausage and hot dogs), and fatty meats. Choose healthy foods that are low in saturated fat, trans fat and cholesterol which include: Fruits and vegetables, fiber rich grain products (like whole grain pasta and brown rice), lean meat such as chicken, fish, nuts, seeds, and legumes. (3) Eat Better. Eat small portions. Shop at the grocery with a list and do not stray from it. Tips for a healthy diet include: Limit sodium intake to less than 1500mg daily, avoid prepackaged, processed, and fast foods, choose a diet rich in fruits, vegetables, and whole grain, high fiber foods, and limit saturated & cholesterol in your diet. (4) Manage Blood Pressure. If you have high blood pressure, you should have a cuff at home so that you can check your blood pressure regularly. Be sure you have a good cuff. An arm one is generally better than a wrist one. Bring the cuff to a doctor's appointment to validate that the measurements that your cuff are taking are accurate. Take your blood pressure twice daily when you are sitting down and relaxing. Record the numbers in a log and bring this log with you to your doctors' appointments. (5) Lose Weight if your BMI is above 25. A healthy BMI is between 19-25. To calculate Your BMI, you may use a Standard BMI Calculator on the NIH BMI website: <www.nhlbi.nih.gov/guidelines/obesity/BMI/bmicalc.htm>. Weigh oneself daily. If you are overweight, set a goal to lose weight. A pound a week loss if needed is a good target. (6) Reduce Blood Sugar. Limit foods and liquids with "added sugars." (Added sugars include sucrose, fructose, glucose, maltose, dextrose, high fructose corn syrup, corn syrup, concentrated fruit juice and honey). (7) Stop Smoking. If you smoke, quitting smoking is one of the best things that you can do for your health. Smoking increases your risk of heart attack, stroke, and peripheral vascular disease, which is a build-up of plaque in your arteries. Please discard all the cigarettes and lighters in your house. Have a plan for what you will do when you have the urge to smoke. Direct and second- hand smoke shortens your life as well as the lives of your family, friends and others around you. For your health and the health of those around you, please consider quitting! Proper Bending Body Mechanics: Maintain a wide stance with one foot slightly in front of the other. Keep your back straight. Bend utilizing the strength in your hips and knees. Do not bend at the waist. Maintain the lifted object at your waist-level close to your body. Avoid lifting weight that causes immediately pain or pain anywhere in the body afterwards. Smoking/Nicotine If there was ever one thing that you could do to increase your overall health, decrease your risk of cardiovascular problems by about 39% the second you make the choice, it is to STOP SMOKING. Your body's most instant gratification is the second you stop smoking. We have all heard the studies, read the articles but it is true, smoking is extremely bad for your overall health, and moreover it is detrimental to your bone health. Nicotine, IN ANY FORM, kills bone cells, prevents your body from healing fractures, and significantly prolongs healing after surgery. In spine surgery specifically, it increases your risk of not healing your bones to create a fusion and increases your risk of having a revision surgery due to this up to 60%. I know it is hard. I know it feels impossible. But there are ways. Take control of your life. We are here to help you through it. And when you are ready, ask us and we can direct you to help if you desire. Use the START Plan to Quit Smoking (please visit the Helpguide.org website listed below for more information): S = Set a quit date. Choose a date within the next 2 weeks, so you have enough time to prepare without losing your motivation to quit. If you mainly smoke at work, quit on the weekend, so you have a few days to adjust to the change. T = Tell family, friends, and co-workers that you plan to quit. Let your friends and family in on your plan to quit smoking and tell them you need their support and encouragement to stop. Look for a quit min who wants to stop smoking as well. You can help each other get through the rough times. A = Anticipate and plan for the challenges you'll face while quitting. Most people who begin smoking again do so within the first 3 months. You can help yourself make it through by preparing ahead for common challenges, such as nicotine withdrawal and cigarette cravings. R = Remove cigarettes and other tobacco products from your home, car, and work. Throw away all your cigarettes (no emergency pack!), lighters, ashtrays, and matches. Wash your clothes and freshen up anything that smells like smoke. Shampoo your car, clean your drapes and carpet, and steam your furniture. T = Talk to your doctor about getting help to quit. Your doctor can prescribe medication to help with withdrawal and suggest other alternatives. If you can't see a doctor, you can get many products over the counter at your local pharmacy or grocery store, including the nicotine patch, nicotine lozenges, and nicotine gum. Resources for Quitting Smoking: <https://ww w.[place].gov/documents/[facility]/Quit_Tobacco_Resources_for_patients_313480_7.pdf> Supplementation: Take recommended dosages of Vitamin D and Calcium to help fortify your bones and help them to heal. See your health maintenance packet for dosages and recommended levels. DVT/VTE prophylaxis: You will be given compression stockings from the hospital. Wear these daily for the first two weeks after surgery. You may take them off at night. You may be prescribed a medication to help thin your blood. Take this as directed. If you are not prescribed this medication, early and frequent ambulation has been shown to be the best prophylaxis to deep vein thrombosis and sequelae related to this event. Discharge Disposition: HOME SELF-CARE
[2020-11-17] MEDS: INDOMETHACIN 25 MG CAP PO SCH (10:05)
[2020-11-17] MEDS: GABAPENTIN 300 MG CAP PO SCH (10:05)
[2020-11-17 10:39] LABS: Basophils # (A) 0.01 X 10*3/uL (0.00-0.10); Basophils % (A) 0.1 %; Eosinophils # (A) 0 X 10*3/uL (0.04-0.35); Eosinophils % (A) 0 %; HCT 37.3 % (37.2-46.3); HGB 12.4 g/dL (12.0-15.0); Lymphocytes # (A) 0.96 X 10*3/uL (0.90-5.00); Lymphocytes % (A) 9.8 %; MCH 31.4 pg (27.0-32.0); MCHC 33.2 g/dL (32.0-37.0); MCV 94.4 fL (80.0-97.0); Mean Platelet Volume 10.9 fL (9.5-12.2); Monocytes % (A) 5.1 %; Neutrophils # (A) 8.26 X 10*3/uL (1.80-7.70); Neutrophils % (A) 84.5 %; Platelet Count 228 X 10*3/uL (140-440); RBC 3.95 X 10*6/uL (4.10-5.20); RDW 13.2 % (11.5-14.5); WBC 9.78 X 10*3/uL (4.50-10.00)
[2020-11-17 10:49] VITALS: BP 113/69; PULSE 99; RESP 16
--- NOTE | 2020-11-17 17:19 | P.CONS ---
History of Present Illness - History of Present Illness This is a pleasant 45 years old female with past medical history of hyperlipi demia, hypothyroidism, herniated disc and degenerative disc disease. Presents because of cervical osteoarthritis with numbness and her left hand. She has herniated disc at C5 to C6 with stenosis and the same at C6 to C7. She underwent C5 to C6 and C6 to C7 total disc replacement. Today is postoperative day #1. She was seen walking the hallway with physical therapist and occupational therapist with soft c-collar is in place. Patient was pleasant, smiling and feels relaxed. She denies any pain. No numbness or weakness. No headache. No dyspnea. No diarrhea or abdominal pain. No urinary complaints or fever. Hemodynamically patient is a stable. CBC is unremarkable but it looks like patient is already been discharged primary team Review of Systems CONSTITUTIONAL: No fever, no malaise, no fatigue. HEENT: No recent visual problems or hearing problems. Denied any sore throat. CARDIOVASCULAR: No orthopnea, PND, no palpitations, no syncope. PULMONARY: No shortness of breath, no cough, no hemoptysis. GASTROINTESTINAL: No diarrhea, no nausea, no vomiting, no abdominal pain. Normoactive bowel sounds. NEUROLOGICAL: No headaches, no weakness, no numbness. HEMATOLOGICAL: Denies any bleeding or petechiae. GENITOURINARY: Denies any burning micturition, frequency, or urgency. MUSCULOSKELETAL/RHEUMATOLOGICAL: Denies any joint pain, swelling, or any muscle pain. ENDOCRINE: Denies any polyuria or polydipsia. 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, herniated disk, degenerative disks-has some numbnes in fingers on left hand), benign cysts on thyroid, History of Any Multi-Drug Resistant Organisms: None Reported Past Surgical History: Appendectomy, Hysterectomy Additional Past Surgical History / Comment(s): D&C, EGD, thyroid fine needle aspiration Past Anesthesia/Blood Transfusion Reactions: No Reported Reaction Past Psychological History: No Psychological Hx Reported Smoking Status: Never smoker Past Alcohol Use History: Rare Past Drug Use History: None Reported Additional Drug Use History / Comment(s): CBD lotion - Past Family History Father Family Medical History: Cancer Additional Family Medical History / Comment(s): melanoma Medications and Allergies Home Medications Medication Instructions Recorded Confirmed Type Acetaminophen [Tylenol Extra 1,000 mg PO DIRECTED PRN 11/12/20 11/12/20 History Strength] Multivitamins, Thera [Multivitamin 1 tab PO DAILY 11/12/20 11/12/20 History (formulary)] Cyclobenzaprine [Flexeril] 10 mg PO HS #20 tab 11/17/20 Rx Gabapentin [Neurontin] 300 mg PO BID #60 cap 11/17/20 Rx Indomethacin [Indocin] 50 mg PO BID #30 capsule 11/17/20 Rx Sennosides/Docusate Sodium [Senna 1 each PO DAILY #20 capsule 11/17/20 Rx Plus 8.6-50 mg Softgel] cefaDROXiL [Duricef] 1 gm PO DAILY #5 tablet 11/17/20 Rx traMADol HCl [Ultram] 50 mg PO Q6H PRN #30 tab 11/17/20 Rx Allergies Allergy/AdvReac Type Severity Reaction Status Date / Time amoxicillin Allergy Itching Verified 11/16/20 12:18 erythromycin base Allergy Itching Verified 11/16/20 12:18 minocycline [From Minocin] Allergy Itching Verified 11/16/20 12:18 morphine Allergy Rash/Hives Verified 11/16/20 12:18 Penicillins Allergy Itching Verified 11/16/20 12:18 Sulfa (Sulfonamide Allergy Itching Verified 11/16/20 12:18 Antibiotics) sulfamethoxazole Allergy Itching Verified 11/16/20 12:18 [From Bactrim] trimethoprim [From Bactrim] Allergy Itching Verified 11/16/20 12:18 Physical Exam Vitals: Vital Signs Temp Pulse Pulse Resp BP Pulse Ox 11/17/20 08:00 98.6 F 62 99 16 113/69 99 11/17/20 02:20 97.5 F L 62 15 112/66 100 11/16/20 20:34 80 116/72 88 L 11/16/20 20:19 77 119/71 99 11/16/20 20:04 99 120/75 100 11/16/20 20:00 18 11/16/20 19:49 83 118/72 99 11/16/20 19:34 90 111/72 96 11/16/20 19:19 91 117/71 96 11/16/20 19:04 88 120/72 97 11/16/20 18:49 84 118/69 94 L 11/16/20 18:34 96 132/72 98 11/16/20 18:01 91 18 127/59 98 11/16/20 17:46 103 H 18 132/63 98 11/16/20 17:38 85 16 129/60 99 11/16/20 17:34 98.3 F 15 118/69 95 11/16/20 17:31 100 18 129/60 99 11/16/20 17:23 97.2 F L 120 H 12 125/55 99 Intake and Output 11/16/20 11/17/20 11/17/20 22:59 06:59 14:59 Intake Total 800 Output Total 236 Balance 564 Intake: IV 800 Output: Urine 186 Estimated Blood Loss 50 Other: Voiding Method Toilet # Voids 1 Weight 63 kg GENERAL: The patient is alert and oriented x3, not in any acute distress. Well developed, well nourished. -HEENT: Pupils are round and equally reacting to light. EOMI. No scleral icterus. No conjunctival pallor. Normocephalic, atraumatic. No pharyngeal erythema. No thyromegaly. Soft c-collar is in place, of the examination is deferred to surgery team CARDIOVASCULAR: S1 and S2 present. No murmurs, rubs, or gallops. PULMONARY: Chest is clear to auscultation, no wheezing or crackles. ABDOMEN: Soft, nontender, nondistended, normoactive bowel sounds. No palpable organomegaly. MUSCULOSKELETAL: No joint swelling or deformity. EXTREMITIES: No cyanosis, clubbing, or pedal edema. NEUROLOGICAL: Gross neurological examination did not reveal any focal deficits. SKIN: No rashes. no petechiae. Results CBC & Chem 7: 11/17/20 04:51 Labs: Abnormal Lab Results - Last 24 Hours (Table) 11/17/20 Range/Units 04:51 RBC 3.95 L (4.10-5.20) X 10*6/uL Immature Gran # 0.05 H (0.00-0.04) X 10*3/uL Neutrophils # 8.26 H (1.80-7.70) X 10*3/uL Eosinophils # 0 L (0.04-0.35) X 10*3/uL Assessment and Plan Assessment: Disc herniation with stenosis of the level of C5-C6 and C6-C7, status post total disc replacement Degenerative disc disease History of hyperlipidemia Plan: This is a pleasant 45 years old female status post cervical disc replacement. Pain management and DVT prophylaxis per primary team Labs and medication were reviewed.. Continue same treatment. Continue with symptomatic treatment. Resume home medication. Monitor lytes and vitals. DVT and GI prophylaxis. Further recommendationsas per clinical course of the patient We recommend patient follow up with her PCP Dr. Phelps in one week after discharge and she was instructed with the same Thank you for consulting us
== END 2020-11-17 11:09 | disposition home or self-care (01) ==
LOC: OR 11:29 → 4SSUR 17:33 → OR 11-17 11:09
PROVIDERS: ATTEND Orthopaedic Surgery
DX: M48.02 Spinal stenosis, cervical region (principal); M47.22 Other spondylosis with radiculopathy, cervical region; E78.5 Hyperlipidemia, unspecified; E07.9 Disorder of thyroid, unspecified; Z88.1 Allergy status to other antibiotic agents; Z88.5 Allergy status to narcotic agent; Z88.0 Allergy status to penicillin; Z88.2 Allergy status to sulfonamides
CPT/HCPCS: 97161; 86900; 86901; 85025; 86850; 72040 ×2; 36415; 22551; 22552; C1713; C1762; J2250; J3370; J1200; J1100 ×2; J0690 ×3; J2405; J2001; J3010; J1170; J0330; J2704

== ENCOUNTER → 2021-02-09 | Outpatient (CLI) | payer BC ==
[2021-02-09 11:57] LABS: Potassium 5.1 mmol/L (3.5-5.1)
[2021-02-09 13:19] LABS: Basophils % (A) 1 %; Eosinophils # (A) 0.1 k/uL (0-0.7); Eosinophils % (A) 1 %; HCT 43.2 % (34.0-46.0); HGB 13.7 gm/dL (11.4-16.0); Lymphocytes # (A) 2.1 k/uL (1.0-4.8); Lymphocytes % (A) 36 %; MCH 30.8 pg (25.0-35.0); MCHC 31.8 g/dL (31.0-37.0); MCV 96.9 fL (80.0-100.0); Mean Platelet Volume 8.4; Monocytes # (A) 0.4 k/uL (0-1.0); Monocytes % (A) 6 %; Neutrophils # (A) 3.1 k/uL (1.3-7.7); Neutrophils % (A) 53 %; Platelet Count 223 k/uL (150-450); RBC 4.46 m/uL (3.80-5.40); RDW 13.1 % (11.5-15.5); WBC 5.9 k/uL (3.8-10.6)
== END | disposition home or self-care (01) ==
LOC: LABPAT 10:54
PROVIDERS: ATTEND Orthopaedic Surgery
DX: Z01.812 Encounter for preprocedural laboratory examination (principal); M75.42 Impingement syndrome of left shoulder
CPT/HCPCS: 36415; 80051; 85025

== ENCOUNTER 2021-02-23 08:16 | Day surgery (SDC) | payer BC ==
[2021-02-21 09:52] VITALS: BMI 23.9
--- NOTE | 2021-02-22 18:06 | HP ---
HISTORY AND PHYSICAL DATE OF SURGERY: 02/23/2021 Jessica Michael is a 45-year-old patient seen with progressive left shoulder pain. We discussed options for treatment. She elected to proceed with left shoulder arthroscopy. Consent was obtained. PAST MEDICAL HISTORY: Noncontributory. PAST SURGICAL HISTORY: Appendectomy, D and C, hysterectomy. DAILY MEDICATIONS: None. ALLERGIES: ERYTHROMYCIN, MINOCIN, MORPHINE, PENICILLIN, SULFA. SOCIAL HISTORY: She denies tobacco use. PHYSICAL EVALUATION OF THE LEFT SHOULDER: Flexion 150 degrees, abduction 140 degrees. External rotation is 40 degrees with weakness. There is tenderness along the anterolateral acromion and rotator cuff insertion site. Impingement is positive at 90 degrees. Cross-body adduction sign is positive. Drop-arm sign is positive. Her distal neurovascular exam is intact. IMAGING: Radiographs of the left shoulder revealed moderate acromioclavicular joint osteoarthritic changes and cystic changes of the tuberosity. Left shoulder MRI revealed a rotator cuff tendon tear. IMPRESSION: 1. Left shoulder impingement with rotator cuff tear. 2. Left shoulder acromioclavicular joint osteoarthritis. PLAN: Left shoulder arthroscopy with subacromial decompression, arthroscopic rotator cuff repair, Miles procedure and debridement. MMODL / IJN: [id number] /
[~2021-02-23 08:16] MED LIST changes: +LACTATED RINGERS 1,000 ML IV SCH; +LIDOCAINE 1% (10MG/ML) FOR IV START INTRADERMA PRN
[2021-02-23] MEDS ORDERED: MIDAZOLAM 2 MG/2 ML VIAL IV ONE (09:27)
[2021-02-23] MEDS ORDERED: GLYCOPYRROLATE 0.2 MG/ML 2 ML VIAL ONE (09:47)
[2021-02-23] MEDS ORDERED: NEOSTIGMINE 1 MG/ML 10 ML VIAL ONE (09:47)
[2021-02-23] MEDS ORDERED: PROPOFOL 10 MG/ML 20 ML VIAL IV ONE (09:47)
[2021-02-23] MEDS ORDERED: LIDOCAINE 1% INJ 10MG/ML (20 ML MDV) ONE (09:47)
[2021-02-23] MEDS ORDERED: ROCURONIUM 10 MG/ML (5 ML VIAL) IV ONE (09:47)
[2021-02-23] MEDS ORDERED: ROPIVACAINE 5 MG/ML 30 ML VIAL ONE (09:47)
[2021-02-23] MEDS ORDERED: SUCCINYLCHOLINE CHLORIDE 100 MG/5 ML SYR IV ONE (09:47)
[2021-02-23] MEDS ORDERED: fentaNYL (PF) 50 MCG/ML 2 ML AMP ONE (09:47)
[2021-02-23] MEDS ORDERED: LACTATED RINGERS 1,000 ML IV ONE (11:05)
--- NOTE | 2021-02-23 11:16 | P.OP ---
Date of Procedure: 02/23/21 Preoperative Diagnosis: Left shoulder impingement Postoperative Diagnosis: 1. Left shoulder rotator cuff tear 2. Left shoulder impingement Procedure(s) Performed: 1. Left shoulder arthroscopic rotator cuff repair 2. Left shoulder arthroscopic subacromial decompression Implants: 14.75 Arthrex swivel lock anchor Anesthesia: GETA, regional (Interscalene block) Surgeon: Sloan Richter Television Operator #1: Danyel Ferro Estimated Blood Loss (ml): 8 Pathology: none sent Condition: stable Disposition: PACU Indications for Procedure: 45-year-old patient seen with progressive left shoulder pain. After treatment options were discussed, she elected to proceed with arthroscopy. Operative Findings: See description of procedure Description of Procedure: Patient underwent an interscalene block by department of anesthesia. The patient was then taken to the operative suite. The patient underwent a general anesthetic by the department of anesthesia. The patient was placed into a lateral position and secured. There was appropriate padding of the bony prominence. Left shoulder was then prepped and draped in normal sterile orthopedic fashion. We placed the extremity in 10 pounds of longitudinal traction. A posterior incision was now made for a posterior working portal site. The trocar and cannula were inserted into the glenohumeral joint. Arthroscopy was initiated. Spinal needle was now inserted anteriorly, to ascertain the anterior working portal site. An incision was now made in that area, a trocar was inserted followed by a probe. The labrum was probed and found to be stable. There was no chondromalacia present. The biceps was probed and found to be stable. At this point instruments were removed from the glenohumeral joint. Utilizing the posterior working portal site, the trocar and cannula were inserted into the subacromial space. Arthroscopy initiated. I made an incision 2 fingerbreadths lateral to the acromion. I introduced my trocar followed by my ArthroCare ablator. I now began ablating thick subacromial bursal tissue, which exposed the undersurface of the anterior acromion. There was diminished subacromial space. There was a very prominent anterior acromion. A motorized bur was introduced and a subacromial decompression was performed. I also excised some osteophytes off the inferior aspect of the distal clavicle. The acromioc lavicular joint was noted to have some mild to moderate osteoarthritis but not enough to warrant Miles procedure. I turned my attention to the rotator cuff tendon. There was an obvious area of significant tearing along the distal supraspinatus. Upon probing the area and found a full-thickness perforation present. I debrided the margins getting down to stable tendon tissue. The defect/tear measured about 1.5 cm and was freely mobile over the footprint. I abraded the footprint with a motorized bur. With the assistance of Porter PEARSON I passed 3 everted mattress sutures through good bites of rotator cuff tendon. I punched to holes in the footprint area for insertion of an anchor. All 6 limbs of suture were passed through the eyelet of a 4.75 swivel lock anchor. I placed the eyelet into the pre-punched hole and held it there while Porter PEARSON tensioned the sutures and deployed the anchor with good fixation noted. All residual suture limbs were now clipped. We had good compression of the tendon along the entire footprint. Instruments now removed from the portal sites. All portal sites were approximated with nylon suture. Sterile dressings were applied followed by a shoulder sling. Danyel PEARSON assisted in this case. The patient was awakened, transferred to a bed, and taken to recovery in stable condition.
[2021-02-23 11:21] VITALS: TEMP 97
[2021-02-23 11:34] VITALS: RESP 16
[2021-02-23] MEDS ORDERED: ONDANSETRON 4 MG/2 ML VIAL ONE ×2 (11:53→12:31)
[2021-02-23] MEDS ORDERED: ONDANSETRON 4 MG/2 ML VIAL IVP ONE ×2 (11:58→12:36)
[2021-02-23] MEDS ORDERED: ONDANSETRON 4 MG/2 ML VIAL IVP STA (12:33)
[2021-02-23 12:41] VITALS: BP 115/70; PULSE 89
--- NOTE | 2021-02-23 18:42 | P.ANPRN ---
Procedure Note - Anesthesia - Nerve Block Performed Left Interscalene Single Time Out Performed: Yes Date of Procedure: 02/23/21 Procedure Start Time: : Procedure Stop Time: :33 Location of Patient: PreOp Indication: Acute Post-Operative Pain, Requested by Surgeon Sedation Type: Sedate with meaningful contact maintained Preparation: Sterile Prep Position: Supine Needle Types: Pajunk Needle Gauge: 21 Ultrasound used to visualize needle placement: Yes Ultrasound used to observe medication spread: Yes Blood Aspirated: No Pain Paresthesia on Injection Noted: No Resistance on Injection: Normal Image Stored and Saved: Yes Events: Uneventful and Well Tolerated (ropi .5% 25cc plus dexamethasone 4mg)
== END 2021-02-23 13:26 | disposition home or self-care (01) ==
LOC: OR 08:16
PROVIDERS: ATTEND Orthopaedic Surgery
DX: M75.102 Unspecified rotator cuff tear or rupture of left shoulder, not specified as traumatic (principal); M25.812 Other specified joint disorders, left shoulder; Z88.0 Allergy status to penicillin; Z88.1 Allergy status to other antibiotic agents; Z88.2 Allergy status to sulfonamides; Z88.5 Allergy status to narcotic agent; Z90.49 Acquired absence of other specified parts of digestive tract; Z90.710 Acquired absence of both cervix and uterus
CPT/HCPCS: 29824; 29826; 29827; 64415; 76942; 84132; C1713; J2250; J1100; J2710; J2405; J0690; J2001; J3010; J2795; J0330; J2704

== ENCOUNTER → 2021-08-15 | Day surgery (SDC) | payer BC ==
[2021-08-11 10:44] VITALS: BMI 24.7
--- NOTE | 2021-08-14 10:39 | HP ---
HISTORY AND PHYSICAL DATE OF SURGERY: 08/15/2021 Jessica Michael is a 46-year-old patient seen with left shoulder adhesive capsulitis with history of previous left shoulder arthroscopic rotator cuff repair. We discussed options for treatment. She elected to proceed with manipulation under anesthesia of the left shoulder with steroid injection. Consent was obtained. PAST MEDICAL HISTORY: Noncontributory. PAST SURGICAL HISTORY: Appendectomy, D and C, left shoulder arthroscopy, hysterectomy, two-level cervical disc replacement. DAILY MEDICATIONS: Motrin. ALLERGIES: ERYTHROMYCIN, MINOCIN, MORPHINE, PENICILLIN, SULFA, TRAMADOL. SOCIAL HISTORY: She denies tobacco use. PHYSICAL EVALUATION OF LEFT SHOULDER: Her arthroscopic portal sites are well healed. Flexion is 140. Abduction is 130. External rotation is 20 with some weakness and tenderness. There is no tenderness along the anterior acromion. Radiographs of the left shoulder revealed stable conversion to a flat anterior acromion. IMPRESSION: 1. Left shoulder adhesive capsulitis. 2. History of cervical spine disc replacement. PLAN: Manipulation under anesthesia of left shoulder with steroid injection. MMODL / IJN: [id number] /
[~2021-08-15] MED LIST changes: +BUPIVACAINE (PF) 0.5% 30 ML VIAL ONE; -DEXAMETHASONE SOD PHOSPHATE 4 MG/ML 1 ML VIAL IV ONE; +HYDROmorphone (PF) 1 MG/ML ONE; -HYDROmorphone 0.5 MG/0.5 ML SYRINGE IVP PRN; +KETOROLAC 15 MG/ML 1 ML VIAL ONE; -LACTATED RINGERS 1,000 ML IV SCH; -LIDOCAINE 1% (10MG/ML) FOR IV START INTRADERMA PRN; +MIDAZOLAM 2 MG/2 ML VIAL ONE; -ONDANSETRON 4 MG/2 ML VIAL IVP ONE; +ONDANSETRON 4 MG/2 ML VIAL ONE; +PROPOFOL 10 MG/ML 20 ML VIAL IV ONE; +fentaNYL (PF) 50 MCG/ML 2 ML AMP ONE; +methylPREDNISolone ACETATE 40 MG/ML 1 ML VIAL ONE
--- NOTE | 2021-08-15 13:22 | OP ---
OPERATIVE REPORT DATE OF SURGERY: 08/15/2021 PREOPERATIVE DIAGNOSIS: Left shoulder adhesive capsulitis. POSTOPERATIVE DIAGNOSIS: Left shoulder adhesive capsulitis. PROCEDURE: Manipulation under anesthesia of left shoulder with steroid injection. SURGEON: Dr. Richter. ESTIMATED BLOOD LOSS: Zero. COMPLICATIONS: Zero. PROCEDURE DESCRIPTION: The patient tolerated the procedure well. She is a 46-year-old patient seen with symptomatic left shoulder adhesive capsulitis. After having treatment options discussed, she elected to proceed with manipulation under anesthesia with steroid injection. Consent was obtained. The patient was taken to a monitored anesthesia area. She underwent IV sedation by the Department of Anesthesia. Once sufficient anesthesia was noted, I performed manipulation of the left shoulder, achieving near-full range of motion and audible tearing of the adhesions. I now sterilely prepped and draped the anterior aspect of the left shoulder. I now injected a solution of 1 mL Depo-Medrol and 2 mL 0.25% plain Marcaine intraarticularly. I did take the shoulder through range of motion after the injection and applied a sterile Band-Aid. The patient tolerated the procedure well. She was awakened, having tolerated the procedure well. MMODL / IJN: [id number] /
== END ==
LOC: OR 08:21
PROVIDERS: ATTEND Orthopaedic Surgery
DX: M75.02 Adhesive capsulitis of left shoulder (principal); Z98.890 Other specified postprocedural states; Z90.49 Acquired absence of other specified parts of digestive tract; Z90.710 Acquired absence of both cervix and uterus; Z79.1 Long term (current) use of non-steroidal anti-inflammatories (NSAID); Z88.1 Allergy status to other antibiotic agents; Z88.5 Allergy status to narcotic agent; Z88.0 Allergy status to penicillin; Z88.2 Allergy status to sulfonamides
CPT/HCPCS: 23700; J2250; J1030; J2405; J3010; J1170; J1885; J2704

== ENCOUNTER → 2023-08-08 | Outpatient (CLI) | payer BC ==
[2023-08-08 11:41] LABS: Testosterone 16.9 ng/dL (7.00-45.62)
[2023-08-08 11:42] LABS: Insulin Level 5.5 mIU/mL (3.0-25.0)
[2023-08-09 04:06] LABS: B/A1 Ratio 0.59 Ratio (0.30 - 0.90)
== END | disposition home or self-care (01) ==
LOC: LABWHC1 07:46
PROVIDERS: ATTEND Internal Medicine
DX: N95.1 Menopausal and female climacteric states (principal)
CPT/HCPCS: 36415; 82172; 82533; 82626; 82627; 83498; 83516; 83525; 84144; 84403